=== PATIENT | male | born 1985 | race Caucasian/White ===

== ENCOUNTER 2021-11-14 16:04 | Emergency (ER) | payer OTHER ==
[2021-11-14] MEDS ORDERED: IBUPROFEN800 MG PO (17:49)
== END 2021-11-14 18:20 | disposition home or self-care (01) ==
LOC: FER 16:04
DX: S63.257A Unspecified dislocation of left little finger, initial encounter (principal); Z28.310 Unvaccinated for COVID-19; X58.XXXA Exposure to other specified factors, initial encounter; Y93.89 Activity, other specified
CPT/HCPCS: 73130